=== PATIENT | male | born 1950 | race Caucasian/White ===

== ENCOUNTER 2017-06-30 11:28 | Emergency (ER) | payer MEDICARE, OTHER ==
[~2017-06-30] VITALS: Ht 162.6 cm; Wt 93.5 kg
[~2017-06-30 11:28] MED LIST: ALLO100T PO; ALPR0.254 PO; ASPI-650 PO; ATOR20TA38 PO; CABE0.5T PO; CALC500T12 PO; CARV3.1260 PO; CLOP75TA27 PO; DIGO125T PO; FURO40TA4 PO; HYDR-3671 PO; LEVO300T PO; NIT4 SL; OMEG-135 PO; PANT40TA4 PO; SPIR25TA PO; ZOLP5TAB7 PO
[2017-06-30 11:40] VITALS: Ht 162.6 cm; Wt 93.5 kg
--- NOTE | 2017-06-30 11:46 | ERD ---
ER Documentation Chief Complaint Chief Complaint COUGH X3 WKS, SUDDEN ONSET PURPLE BRUISING, SENT BY PMD JONATHAN The patient is a 67-year-old male, presenting to the ER because of sudden onset of left-sided abdominal bruises after having intermittent cough for the last 3 weeks. He was seen by his physician today Dr. Doherty who sent the patient to the ER. He denies fever, chills, neck pain, chest pain, abdominal pain, vomiting, dysuria, diarrhea, constipation. He denies hematemesis, hematochezia he does not smoke nor drink Past medical history: CAD, hypertension, diabetes mellitus, depression, anxiety , hypothyroidism, gout, chronic kidney disease Past surgical history: CABG, lower extremity vascular bypass, aortic valve replacement, left foot osteomyelitis, right chest hemodialysis catheter. ROS All systems reviewed and are negative except as per history of present illness. Medications Home Meds Active Scripts Dextromethorphan Hb-Promethazine Hcl* (Promethazine DM* Syrup) 473 Ml Syrup, 10 ML PO Q6 Y for COUGH, #120 ML Prov:SOFIA BATISTA MD 06/30/17 Reported Medications Isosorbide Mononitrate* (Isosorbide Mononitrate*) 30 Mg Tab.er.24h, 30 MG PO DAILY, TAB 06/30/17 Levothyroxine Sodium* (Levothyroxine Sodium*) 300 Mcg Tablet, 300 MCG PO BEFORE BREAKFAST, #30 TAB 06/30/17 Carvedilol* (Carvedilol*) 6.25 Mg Tablet, 6.25 MG PO BID, #60 TAB 06/30/17 Cabergoline* (Cabergoline*) 0.5 Mg Tablet, 0.5 MG PO TWICE WEEKLY, #10 TAB 06/30/17 Allopurinol* (Allopurinol*) 100 Mg Tablet, 100 MG PO DAILY, TAB 06/30/17 Valsartan* (Diovan*) 40 Mg Tablet, 40 MG PO DAILY, TAB 06/30/17 Discontinued Reported Medications Zolpidem Tartrate* (Zolpidem Tartrate*) 5 Mg Tablet, 5 MG PO HS Y, TAB 07/04/15 Spironolactone* (Aldactone*) 25 Mg Tablet, 25 MG PO DAILY, TAB 07/04/15 Nitroglycerin* (Nitrostat*) 0.4 Mg Tab.subl, 0.4 MG SL Q5MIN Y for CHEST PAIN, BOTTLE 07/04/15 Furosemide* (Furosemide*) 40 Mg Tablet, 40 MG PO BID, TAB 07/04/15 Digoxin* (Digoxin*) 0.125 Mg Tab, 0.125 MG PO DAILY, TAB 07/04/15 Clopidogrel Bisulfate (Clopidogrel) 75 Mg Tablet, 75 MG PO DAILY, TAB 07/04/15 Calcium Carbonate* ([place]-500*) 1 Tab Tablet, 1 TAB PO BID, TAB 07/04/15 Alprazolam* (Alprazolam*) 0.25 Mg Tablet, 0.25 MG PO QPM Y for ANXIETY, TAB 07/04/15 Allopurinol* (Allopurinol*) 100 Mg Tablet, 100 MG PO DAILY, TAB 07/04/15 Carvedilol* (Carvedilol*) 3.125 Mg Tablet, 3.125 MG PO BID, TAB 07/04/15 Hydralazine Hcl* (Apresoline*) 25 Mg Tab, 25 MG PO TID 09/29/13 Pantoprazole (Protonix) 40 Mg Tabec, 40 MG PO DAILY 09/29/13 Atorvastatin Calcium* (Atorvastatin Calcium*) 20 Mg Tablet, 20 MG PO DAILY 09/29/13 Fish Oil* (Fish Oil*) 1,000 Mg Cap, 1000 MG PO DAILY 09/29/13 Levothyroxine Sodium (Levothyroxine Sodium) 300 Mcg Tablet, 300 MCG PO DAILY 09/29/13 Aspirin (Aspirin) 81 Mg Tablet, 81 MG PO DAILY 12/24/11 Cabergoline* (Cabergoline*) 0.5 Mg Tablet, 0.5 MG PO 3 TIMES A WEEK 08/12/10 Allergies Allergies: Coded Allergies: levofloxacin (Verified Allergy, Unknown, 06/30/17) PMhx/Soc History of Surgery: Yes Anesthesia Reaction: No Hx Neurological Disorder: No Hx Respiratory Disorders: No Hx Cardiac Disorders: Yes Hx Psychiatric Problems: Yes Hx Miscellaneous Medical Probl: No Hx Alcohol Use: No Hx Substance Use: No Hx Tobacco Use: No Physical Exam Vitals Vital Signs Date Time Temp Pulse Resp B/P Pulse Ox O2 Delivery O2 Flow Rate FiO2 06/30/17 14:52 98.1 82 20 139/77 98 Room Air 06/30/17 11:40 99.5 85 20 127/66 96 Physical Exam Const: No acute distress. Head: Atraumatic. Eyes: Normal Conjunctiva. ENT: Normal External Ears, Nose and Mouth. Neck: Full range of motion. No meningismus. Resp: Clear to auscultation bilaterally. Cardio: Regular rate and rhythm. Abd: Soft, non distended, normal bowel sounds, non tender.Left upper quadrant small hematoma, nontender, left-sided abdominal ecchymosis, no laceration, no crepitus Skin: No petechiae or rashes. Back: No midline or flank tenderness. Ext: No cyanosis, or edema. Neur: Awake and alert. No focal deficit Psych: Normal Mood and Affect. Result Diagram: 06/30/17 1240 06/30/17 1240 Results 24 hrs Laboratory Tests Test 06/30/17 12:40 06/30/17 13:00 White Blood Count 9.510^3/ul Red Blood Count 3.6910^6/ul Hemoglobin 10.7g/dl Hematocrit 33.4% Mean Corpuscular Volume 90.5fl Mean Corpuscular Hemoglobin 29.0pg Mean Corpuscular Hemoglobin Concent 32.0g/dl Red Cell Distribution Width 15.8% Platelet Count 39938^3/UL Mean Platelet Volume 10.7fl Neutrophils % 61.9% Lymphocytes % 19.1% Monocytes % 10.3% Eosinophils % 7.7% Basophils % 0.6% Nucleated Red Blood Cells % 0.0/100WBC Neutrophils # 5.910^3/ul Lymphocytes # 1.810^3/ul Monocytes # 1.010^3/ul Eosinophils # 0.710^3/ul Basophils # 0.110^3/ul Nucleated Red Blood Cells # 0.010^3/ul Prothrombin Time 13.4Sec Prothrombin Time Ratio 1.0 INR International Normalized Ratio 1.02 Activated Partial Thromboplast Time 36.5Sec Sodium Level 142mmol/L Potassium Level 3.9mmol/L Chloride Level 99mmol/L Carbon Dioxide Level 28mmol/L Anion Gap 19 Blood Urea Nitrogen 48mg/dl Creatinine 6.08mg/dl Glucose Level 119mg/dl Calcium Level 8.4mg/dl Total Bilirubin 0.5mg/dl Direct Bilirubin 0.00mg/dl Indirect Bilirubin 0.5mg/dl Aspartate Amino Transf (AST/SGOT) 22IU/L Alanine Aminotransferase (ALT/SGPT) 33IU/L Alkaline Phosphatase 56IU/L Total Protein 7.3g/dl Albumin 4.4g/dl Globulin 2.90g/dl Albumin/Globulin Ratio 1.51 Lipase 275U/L Urine Color YELLOW Urine Clarity CLEAR Urine pH 8.0 Urine Specific [place] 1.014 Urine Ketones NEGATIVEmg/dL Urine Nitrite NEGATIVEmg/dL Urine Bilirubin NEGATIVEmg/dL Urine Urobilinogen NEGATIVEmg/dL Urine Leukocyte Esterase NEGATIVELeu/ul Urine Microscopic RBC 1/HPF Urine Microscopic WBC 1/HPF Urine Bacteria FEW/HPF Urine Hemoglobin NEGATIVEmg/dL Urine Glucose 2+mg/dL Urine Total Protein 2+mg/dl Procedures/[place] [id number] Radiology Main Line: [phone] DIAGNOSTIC IMAGING REPORT Patient: JOCELYN SAUCEDA : 1950 Age: 67 Sex: M MR #: [id number] DOS: 06/30/17 1152 Ordering MD: SOFIA BATISTA MD Location: E/R Room/Bed: PROCEDURE: XR Chest. CLINICAL INDICATION: Abdominal pain. TECHNIQUE: Single frontal view. COMPARISON: Chest radiograph dated 07/05/2015. FINDINGS: There is a tunneled right internal jugular vein dialysis catheter with the tip in the cavoatrial junction region. There are sternal wires and mediastinal clips. There is a trans arterial aortic valve replacement. The heart is enlarged. Multiple surgical clips are present in the neck. Small calcifications are present in the lungs from previous granulomatous disease. The lungs are otherwise clear. There is no pleural effusion. There is no pneumothorax. IMPRESSION: 1. Dialysis catheter in satisfactory position. 2. Previous median sternotomy. 3. Aortic valve replacement. 4. Cardiomegaly. 5. Previous granulomatous disease. RPTAT: QQ .Rodger Hunter MD, MD Date Time Electronically viewed and signed by .Rodger Hunter MD, on 06/30/2017 12:26 .R/ CC: SOFIA BATISTA MD [place] [id number] Radiology Main Line: [phone] DIAGNOSTIC IMAGING REPORT Patient: JOCELYN SAUCEDA : 1950 Age: 67 Sex: M MR #: [id number] DOS: 06/30/17 1152 Ordering MD: SOFIA BATISTA MD Location: E/R Room/Bed: PROCEDURE: CT Abdomen and Pelvis without contrast. CLINICAL INDICATION: Abdominal and pelvic pain. Left upper quadrant pain. TECHNIQUE: CT scan of the abdomen and pelvis without contrast was performed. Coronal and sagittal reformatted images were obtained from the axial source images. Images were reviewed on a high-resolution PACS workstation. Total exam DLP is 1291.71 mGy-cm. CTDIvol is 19.07 mGy. One or more of the following dose reduction techniques were used: Automated exposure control, adjustment of the mA and/or kV according to patient size, use of iterative reconstruction technique. COMPARISON: None. FINDINGS: There are benign calcified granulomas at both lung bases posteriorly. The lung bases are otherwise normal. There is no pleural effusion or pericardial effusion. The heart is enlarged. There are sternal wires. There is a trans arterial aortic valve replacement. The liver is normal in size and attenuation. Benign hepatic calcifications are noted. There is no other focal hepatic lesion. Sludge or gallstones are present in the gallbladder. There is no gallbladder wall thickening or fluid around the gallbladder. The bile ducts are normal. The spleen is normal in size. There is no focal splenic lesion. Both adrenals are normal with no enlargement or mass. The pancreas is unremarkable with no mass or evidence of pancreatitis. Both kidneys are atrophic. There is no solid renal mass, hydronephrosis, or calculus. There is a benign cyst in the mid left kidney measuring 2.1 cm. The abdominal aorta is not dilated. There is calcification in the aorta consistent with atherosclerosis. A stent is present in the left common iliac artery. There is no retroperitoneal lymphadenopathy or mass. There is no pelvic lymphadenopathy or mass. The bladder and distal ureters are normal. The periappendiceal region is unremarkable with no evidence of appendicitis. The bowel and mesentery are normal. There is no free fluid or free gas. There are degenerative changes of the spine. There is no fracture or lytic lesion. IMPRESSION: 1. Benign calcified granulomas at both lung bases posteriorly. 2. Cardiomegaly. 3. Previous median sternotomy. 4. Aortic valve replacement. 5. Benign hepatic calcifications. 6. Sludge or gallstones in the gallbladder. No evidence of cholecystitis. 7. Bilateral atrophic kidneys. 8. Benign left renal cyst. 9. Stent in the left common iliac artery. 10. Degenerative changes of the spine. RPTAT: QQ .Rodger Hunter MD, MD Date Time Electronically viewed and signed by .Rodger Hunter MD, MD on 06/30/2017 12:25 .R/ CC: SOFIA BATISTA MD MEDICAL MAKING DECISION: The patient is a 67-year-old male, presenting with acute left-sided abdominal hematoma of unclear etiology. The abdominal exam is unremarkable, I do not suspect any intra-abdominal pathology. Departure Diagnosis: Primary Impression: Abdominal hematoma Additional Impression: Cough Condition: Good Comments I discussed the findings with the patient and his Dr. Doherty, who agreed to discharge the patient. I advised the patient to follow-up with the primary physician in about 1-2 days, sooner if needed and return if any concern. SOFIA BATISTA MD Jun 30, 2017 11:46
--- NOTE | 2017-06-30 12:25 | RADRPT ---
PROCEDURE: CT Abdomen and Pelvis without contrast. CLINICAL INDICATION: Abdominal and pelvic pain. Left upper quadrant pain. TECHNIQUE: CT scan of the abdomen and pelvis without contrast was performed. Coronal and sagittal reformatted images were obtained from the axial source images. Images were reviewed on a high[employer] PACS workstation. Total exam DLP is 1291.71 mGy-cm. CTDIvol is 19.07 mGy. One or more of the following dose reduction techniques were used: Automated exposure control, adjustment of the mA and/ or kV according to patient size, use of iterative reconstruction technique. COMPARISON: None. FINDINGS: There are benign calcified granulomas at both lung bases posteriorly. The lung bases are otherwise n ormal. There is no pleural effusion or pericardial effusion. The heart is enlarged. There are sterna l wires. There is a trans arterial aortic valve replacement. The liver is normal in size and attenuation. Benign hepatic calcifications are noted. There is no o ther focal hepatic lesion. Sludge or gallstones are present in the gallbladder. There is no gallbladder wall thickening or flui d around the gallbladder. The bile ducts are normal. The spleen is normal in size. There is no focal splenic lesion. Both adrenals are normal with no enlargement or mass. The pancreas is unremarkable with no mass or evidence of pancreatitis. Both kidneys are atrophic. There is no solid renal mass, hydronephrosis, or calculus. There is a edis ign cyst in the mid left kidney measuring 2.1 cm. The abdominal aorta is not dilated. There is calcification in the aorta consistent with atherosclero sis. A stent is present in the left common iliac artery. There is no retroperitoneal lymphadenopathy or mass. There is no pelvic lymphadenopathy or mass. The bladder and distal ureters are normal. The periappendiceal region is unremarkable with no evidence of appendicitis. The bowel and mesentery are normal. There is no free fluid or free gas. There are degenerative changes of the spine. There is no fracture or lytic lesion. IMPRESSION: 1. Benign calcified granulomas at both lung bases posteriorly. 2. Cardiomegaly. 3. Previous median sternotomy. 4. Aortic valve replacement. 5. Benign hepatic calcifications. 6. Sludge or gallstones in the gallbladder. No evidence of cholecystitis. 7. Bilateral atrophic kidneys. 8. Benign left renal cyst. 9. Stent in the left common iliac artery. 10. Degenerative changes of the spine. RPTAT: QQ .Rodger Hunter MD, MD Date Time Electronically viewed and signed by .Rodger Hunter MD, on 06/30/2017 12:25 .R/
--- NOTE | 2017-06-30 12:26 | RADRPT ---
PROCEDURE: XR Chest. CLINICAL INDICATION: Abdominal pain. TECHNIQUE: Single frontal view. COMPARISON: Chest radiograph dated 07/05/2015. FINDINGS: There is a tunneled right internal jugular vein dialysis catheter with the tip in the cavoatrial ronaldo ction region. There are sternal wires and mediastinal clips. There is a trans arterial aortic valve replacement. The heart is enlarged. Multiple surgical clips are present in the neck. Small calcifications are present in the lungs from previous granulomatous disease. The lungs are oth erwise clear. There is no pleural effusion. There is no pneumothorax. IMPRESSION: 1. Dialysis catheter in satisfactory position. 2. Previous median sternotomy. 3. Aortic valve replacement. 4. Cardiomegaly. 5. Previous granulomatous disease. RPTAT: QQ .Rodger Hunter MD, Date Time Electronically viewed and signed by .Rodger Hunter MD, on 06/30/2017 12:26 .R/
[2017-06-30 13:03] LABS: BASOPHIL # 0.1 10^3/ul (0.0-0.1); BASOPHILS % 0.6 % (0.0-2.0); EOSINOPHILS # 0.7 10^3/ul (0.0-0.5); EOSINOPHILS % 7.7 % (0.0-7.0); HEMATOCRIT 33.4 % (42.0-52.0); HEMOGLOBIN 10.7 g/dl (14.0-18.0); LYMPHOCYTES # 1.8 10^3/ul (0.8-2.9); LYMPHOCYTES % 19.1 % (15.0-51.0); MEAN CORPUSCULAR VOLUME 90.5 fl (82.0-101.0); MEAN PLATELET VOLUME 10.7 fl (7.4-10.4); MONOCYTES % 10.3 % (0.0-11.0); NEUTROPHIL # 5.9 10^3/ul (1.6-7.5); NEUTROPHILS % 61.9 % (39.0-77.0); PLATELET COUNT 122 10^3/UL (140-415); RED BLOOD COUNT 3.69 10^6/ul (4.70-6.10); RED CELL DISTRIBUTION WIDTH 15.8 % (11.5-14.5); WHITE BLOOD COUNT 9.5 10^3/ul (4.8-10.8)
[2017-06-30 13:14] LABS: INR 1.02; PROTIME 13.4 Sec (12.2-14.2)
[2017-06-30 13:15] LABS: PARTIAL THROMBOPLASTIN TIME 36.5 Sec (25.0-35.0)
[2017-06-30 13:23] LABS: UR BACTERIA FEW /HPF (NONE SEEN); UR RBC 1 /HPF (0-5)
[2017-06-30 13:31] LABS: ALBUMIN 4.4 g/dl (3.3-4.9); ALBUMIN/GLOBULIN RATIO 1.51; BILIRUBIN,INDIRECT 0.5 mg/dl (0-1.1); BILIRUBIN,TOTAL 0.5 mg/dl (0.2-1.3); CALCIUM 8.4 mg/dl (8.4-10.2); CREATININE 6.08 mg/dl (0.61-1.24); POTASSIUM 3.9 mmol/L (3.5-5.1); TOTAL PROTEIN 7.3 g/dl (6.1-8.1)
[2017-06-30 13:37] LABS: ADD UMIC YES; UR ASCORBIC ACID NEGATIVE (NEGATIVE); UR BILIRUBIN (Dip) NEGATIVE (NEGATIVE); UR BLOOD (Dip) NEGATIVE (NEGATIVE); UR CLARITY CLEAR (CLEAR); UR COLOR YELLOW (YELLOW); UR GLUCOSE (Dip) 2+ mg/dL (NEGATIVE); UR KETONES (Dip) NEGATIVE (NEGATIVE); UR LEUKOCYTE ESTERASE (Dip) NEGATIVE Leu/ul (NEGATIVE); UR NITRITE (Dip) NEGATIVE (NEGATIVE); UR SPECIFIC GRAVITY (Dip) 1.014 (1.003-1.030); UR TOTAL PROTEIN (Dip) 2+ mg/dl (NEGATIVE); UR UROBILINOGEN (Dip) NEGATIVE (NEGATIVE)
[2017-06-30] MEDS ORDERED: VALS40TA2 PO (13:47)
[2017-06-30] MEDS ORDERED: ALLO100T PO (13:48)
[2017-06-30] MEDS ORDERED: CABE0.5T PO (13:48)
[2017-06-30] MEDS ORDERED: LEVO300T5 PO (13:49)
[2017-06-30] MEDS ORDERED: CARV6.2579 PO (13:49)
[2017-06-30] MEDS ORDERED: ISOS30TA5 PO (13:50)
[2017-06-30] MEDS ORDERED: D-ME473S2 PO (14:29)
[2017-06-30 14:52] VITALS: BP 139/77; PULSE 82; RESP 20; TEMP 98.1
== END 2017-06-30 14:55 | disposition home or self-care (01) ==
LOC: E/R 11:28
DX: S30.1XXA Contusion of abdominal wall, initial encounter (principal); I25.10 Atherosclerotic heart disease of native coronary artery without angina pectoris; E03.9 Hypothyroidism, unspecified; I12.9 Hypertensive chronic kidney disease with stage 1 through stage 4 chronic kidney disease, or unspecified chronic kidney disease; N18.9 Chronic kidney disease, unspecified; X58.XXXA Exposure to other specified factors, initial encounter; Y92.9 Unspecified place or not applicable; Z95.1 Presence of aortocoronary bypass graft; Z79.82 Long term (current) use of aspirin; Z79.01 Long term (current) use of anticoagulants
CPT/HCPCS: 36415; 71010; 74176; 80053; 81001; 83690; 85025; 85610; 85730